=== PATIENT | female | born 1995 | race Caucasian/White ===

== ENCOUNTER 2023-11-24 08:56 | Outpatient (CLI) | payer OTHER | END 2023-11-24 08:58 | disposition home or self-care (01) | LOC: PRENATAL 08:56 | PROVIDERS: ATTEND Obstetrics & Gynecology Maternal & Fetal Medicine | DX: O36.80X0 Pregnancy with inconclusive fetal viability, not applicable or unspecified (principal); Z36.82 Encounter for antenatal screening for nuchal translucency; Z36.9 Encounter for antenatal screening, unspecified; Z14.8 Genetic carrier of other disease; Z3A.12 12 weeks gestation of pregnancy ==

== ENCOUNTER → 2024-04-12 15:25 | Outpatient (CLI) | payer OTHER | END | disposition home or self-care (01) | LOC: PRENATAL 15:25 | PROVIDERS: ATTEND Obstetrics & Gynecology Maternal & Fetal Medicine | DX: O26.849 Uterine size-date discrepancy, unspecified trimester (principal); O36.8199 Decreased fetal movements, unspecified trimester, other fetus; Z3A.32 32 weeks gestation of pregnancy ==

== ENCOUNTER 2024-05-08 11:23 | Inpatient (IN) | payer OTHER ==
[~2024-05-08] VITALS: Ht 162.6 cm; Wt 68.0 kg
[2024-05-24 17:28] VITALS: BP 119/87
[2024-05-24 18:42] LABS: HEMATOCRIT 40.8 % (36.0-45.00); HEMOGLOBIN 13.5 g/dL (12.0-15.00); MEAN CELL VOLUME 87.3 fL (80.00-100.00); MEAN CORPUSCULAR HGB CONC 33.2 g/dl (32.0-36.0); PLATELET COUNT 185 K/uL (150-450); RED BLOOD COUNT 4.67 M/uL (4.00-6.00); RED CELL DISTRIBUTION WIDTH 12.9 % (11.5-14.5)
[2024-05-24] MEDS ORDERED: IBUprofen 400 MG TABLET PO PRN (18:45)
[2024-05-24] MEDS ORDERED: PRENATAL TABLE1 EAC1 PO (18:46)
[2024-05-24] MEDS ORDERED: FOLIC ACID20 MG PO (18:47)
[2024-05-24 18:50] LABS: INR < 0.93; PARTIAL THROMBOPLASTIN TIME 27.1 SECONDS (22.0-34.0); PROTHROMBIN TIME 10.2 SECONDS (9.0-11.5)
[2024-05-24 18:54] LABS: ALBUMIN 3.1 gm/dL (3.4-5.0); BILIRUBIN TOTAL 0.27 mg/dL (0.3-1.2); CALCIUM 9.2 mg/dL (8.5-10.1); CREATININE SERUM 0.65 mg/dL (0.55-1.02); GFR 108.53; GLOBULINA 3.6 G/DL (2.4-3.5); POTASSIUM 4.12 mEq/L (3.5-5.1); TOTAL PROTEIN 6.7 gm/dL (6.4-8.2)
[2024-05-24] MEDS ORDERED: LIDOCAINE HCL 1% 10ML VIAL IJ ONE (19:15)
[2024-05-24] MEDS ORDERED: CHLORHEXIDINE GLUCONATE 120 ML BOTTLE TOP ONE (19:15)
[2024-05-24] MEDS ORDERED: ERYTHROMYCIN BASE OPHT 1GM EACH TUBE OP ONE (19:15)
[2024-05-24] MEDS ORDERED: OXYTOCIN 20 UNITS/1000ML RL PIGGYBAG IV ONE (19:15)
[2024-05-24 20:34] VITALS: BP 110/70
[2024-05-25 01:10] VITALS: BP 103/61
[2024-05-25 06:33] LABS: HEMOGLOBIN 11.9 g/dL (12.0-15.00); MEAN CORPUSCULAR HGB CONC 34.1 g/dl (32.0-36.0); PLATELET COUNT 151 K/uL (150-450); RED BLOOD COUNT 4.12 M/uL (4.00-6.00); RED CELL DISTRIBUTION WIDTH 12.9 % (11.5-14.5)
[2024-05-25 08:00] VITALS: BP 103/72
[2024-05-25] MEDS ORDERED: PNV,CALCIUM 72/IRON/FOLIC ACID 1 TAB TABLET PO SCH (09:00)
[2024-05-25 16:00] VITALS: BP 94/55
[2024-05-26 00:51] VITALS: BP 110/70
[2024-05-26 07:45] VITALS: BP 97/60
== END 2024-05-26 15:24 | disposition home or self-care (01) | DRG 807 ==
LOC: LDR 05-24 17:31 → OB/GYN 05-24 17:31 → LDR 05-29 11:21
PROVIDERS: ADMIT Obstetrics & Gynecology; ATTEND Obstetrics & Gynecology
PROC: 10E0XZZ Delivery of Products of Conception, External Approach (ICD-10-PCS; principal; 2024-05-24)
PROC: 0KQM0ZZ Repair Perineum Muscle, Open Approach (ICD-10-PCS; 2024-05-24)
PROC: 4A1HXCZ Monitoring of Products of Conception, Cardiac Rate, External Approach (ICD-10-PCS; 2024-05-24)
DX: O70.1 Second degree perineal laceration during delivery (principal); Z37.0 Single live birth; Z3A.39 39 weeks gestation of pregnancy; Z20.822 Contact with and (suspected) exposure to COVID-19